=== PATIENT | female | born 2005 | race African-American/Black ===

== ENCOUNTER 2024-11-28 22:05 | Emergency (ER) | payer MEDICAID ==
[~2024-11-28] VITALS: Ht 157.5 cm; Wt 52.0 kg
[2024-11-28 22:30] VITALS: O2SAT 100
[2024-11-29 01:38] VITALS: BP 112/75; PULSE 60; RESP 20; TEMP 36.6; O2SAT 100
== END 2024-11-29 01:54 | disposition home or self-care (01) ==
LOC: ER 22:05
DX: M79.5 Residual foreign body in soft tissue (principal); Y08.89XA Assault by other specified means, initial encounter; Y93.89 Activity, other specified; Y92.89 Other specified places as the place of occurrence of the external cause; Y99.8 Other external cause status
CPT/HCPCS: 72170; 81025; 99283